=== PATIENT | male | born 1970 | race American Indian/Alaskan Native ===

== ENCOUNTER 2021-08-07 11:00 | Emergency (ER) | payer OTHER, SELFPAY ==
[2021-08-07 11:08] VITALS: BP 118/87
[2021-08-07] MEDS ORDERED: KETOROLAC 60 MG/2 ML INJ IM ONE (11:16)
--- NOTE | 2021-08-07 12:37 | XRay Report ---
Left hip, 2 views HISTORY: Pain COMPARISON: None FINDINGS: Curvilinear ossific density is present along the lateral aspect of the anterior inferior il iac spine. This could reflect avulsion fracture of the rectus femoris. Recommend correlation with foc al point tenderness. Otherwise, no evidence of fracture. No joint malalignment. Mild hip osteoporosis . SI joints and pubic symphysis are intact. No focal soft tissue abnormality. Signer Name: Flex Martinez MD Signed: 08/07/2021 12:33 PM Workstation Name: [id number]
--- NOTE | 2021-08-07 12:44 | Vascular Lab Report ---
DUPLEX DOPPLER LOWER EXTREMITY VEINS, LEFT INDICATION / CLINICAL INFORMATION: hip and thigh pain. TECHNIQUE: Duplex doppler imaging was performed through the veins of the left lower extremity using venous compr ession and other maneuvers. COMPARISON: None available. FINDINGS: LEFT COMMON FEMORAL VEIN: Negative. LEFT FEMORAL VEIN: Negative. LEFT POPLITEAL VEIN: Negative. LEFT CALF VEINS: Negative. ADDITIONAL FINDINGS: None. IMPRESSION: 1. No sonographic evidence for DVT in the left lower extremity. Signer Name: Flex Martinez MD Signed: 08/07/2021 12:39 PM Workstation Name: [id number]
--- NOTE | 2021-08-07 13:06 | Emergency Department Report ---
ED Extremity Problem HPI - General Chief complaint: Extremity Injury, Lower Stated complaint: LEFT HIP PAIN Time Seen by Provider: 08/07/21 11:16 Source: patient Mode of arrival: Wheelchair Limitations: No Limitations - History of Present Illness Initial comments: Patient is a 51-year-old [place] male who is complaining left hip pain for the last 2 days. Patient states he works at [employer] and is on his feet throughout the day. States he cannot remember any direct trauma but is having a great deal of pain at the left hip with some radiating pain into the left lower extremity. States he has increased pain with trying to walk and stand. Pain estimated 8 out of 10 in severity. Denies any back pain bowel or bladder dysfunction. States no fevers chills. Severity scale (0 -10): 8 - Related Data Previous Rx's Medication Instructions Recorded Last Taken Type Amoxicillin/K Clav Tab [Augmentin 1 tab PO BID #52 tablet 03/19/14 Unknown Rx 875MG] guaiFENesin/CODEINE [Robitussin AC] 10 ml PO Q4H PRN #30 oral.liqd 03/19/14 Unknown Rx oxyCODONE /ACETAMINOPHEN [Percocet 1 tab PO Q4H PRN #20 tablet 03/19/14 Unknown Rx 5/325 mg] predniSONE [Deltasone] 20 mg PO QDAY #7 tab 03/19/14 Unknown Rx HYDROcodone/APAP 5-325 [[place] 1 each PO Q6HR PRN #20 tablet 08/07/21 Unknown Rx 5/325] Ketorolac [Toradol] 10 mg PO Q6H PRN #30 tablet 08/07/21 Unknown Rx Allergies Allergy/AdvReac Type Severity Reaction Status Date / Time No Known Allergies Allergy Verified 08/07/21 11:04 ED Review of Systems ROS: Stated complaint: LEFT HIP PAIN Other details as noted in HPI Comment: All other systems reviewed and negative ED Past Medical Hx - Past Medical History Hx Hypertension: Yes Additional medical history: pneumonia - Surgical History Additional Surgical History: ELBOW - Social History Smoking Status: Current Every Day Smoker - Medications Home Medications: Home Medications Medication Instructions Recorded Confirmed Last Taken Type Amoxicillin/K Clav Tab [Augmentin 1 tab PO BID #52 tablet 03/19/14 Unknown Rx 875MG] guaiFENesin/CODEINE [Robitussin AC] 10 ml PO Q4H PRN #30 oral.liqd 03/19/14 Unknown Rx oxyCODONE /ACETAMINOPHEN [Percocet 1 tab PO Q4H PRN #20 tablet 03/19/14 Unknown Rx 5/325 mg] predniSONE [Deltasone] 20 mg PO QDAY #7 tab 03/19/14 Unknown Rx HYDROcodone/APAP 5-325 [[place] 1 each PO Q6HR PRN #20 tablet 08/07/21 Unknown Rx 5/325] Ketorolac [Toradol] 10 mg PO Q6H PRN #30 tablet 08/07/21 Unknown Rx ED Physical Exam - General Limitations: No Limitations General appearance: alert, in no apparent distress - Head Head exam: Present: atraumatic, normocephalic - Eye Eye exam: Present: normal appearance - ENT ENT exam: Present: mucous membranes moist - Neck Neck exam: Present: normal inspection - Respiratory Respiratory exam: Present: normal lung sounds bilaterally. Absent: respiratory distress, wheezes, rales, rhonchi - Cardiovascular Cardiovascular Exam: Present: normal rhythm, tachycardia. Absent: systolic murmur, diastolic murmur, rubs, gallop - GI/Abdominal GI/Abdominal exam: Present: soft, normal bowel sounds. Absent: tenderness, guarding, rebound - Rectal Rectal exam: Present: deferred - Extremities Exam Extremities exam: Present: normal inspection, tenderness (Over the left iliac crest.), other (Patient does have full range of motion to the hip however he is in a great deal of pain. Patient with some medial thigh pain as well.) - Back Exam Back exam: Present: normal inspection - Neurological Exam Neurological exam: Present: alert, oriented X3 - Psychiatric Psychiatric exam: Present: normal affect, normal mood - Skin Skin exam: Present: warm, dry, intact, normal color. Absent: rash ED Course Vital Signs 08/07/21 08/07/21 11:07 11:28 Temperature 98.1 F Pulse Rate 127 H Respiratory 20 17 Rate Blood Pressure 118/87 O2 Sat by Pulse 100 Oximetry ED Medical Decision Making - Radiology Data Left hip, 2 views HISTORY: Pain COMPARISON: None FINDINGS: Curvilinear ossific density is present along the lateral aspect of the anterior inferior iliac spine. This could reflect avulsion fracture of the rectus femoris. Recommend correlation with focal point tenderness. Otherwise, no evidence of fracture. No joint malalignment. Mild hip osteoporosis. SI joints and pubic symphysis are intact. No focal soft tissue abnormality. Signer Name: Olinda Landers MD Signed: 08/07/2021 12:33 PM Workstation Name: [id number] Transcribed By: IVANA Dictated By: OLINDA LANDERS MD Electronically Authenticated By: OLINDA LANDERS MD Signed Date/Time: 08/07/21 1233 Ultrasound Doppler of the left lower extremity shows no acute DVT - Medical Decision Making Patient does have point tenderness over the left iliac crest. This is where the curvilinear irregularity is present. Patient may have had some type of ligament muscle movement which pulled off a piece of bone. The x-ray findings are consistent with the patient's pain. Patient referred to orthopedics and given medication for symptomatic relief. Patient stable for discharge. Critical care attestation.: If time is entered above; I have spent that time in minutes in the direct care of this critically ill patient, excluding procedure time. ED Disposition Clinical Impression: Closed avulsion fracture of anterior superior iliac spine of pelvis Disposition: 01 HOME / SELF CARE / HOMELESS Is pt being admited?: No Does the pt Need Aspirin: No Condition: Stable Instructions: Avulsion Fracture of the Anterior Superior Iliac Spine Referrals: CHARLEY SWENSON MD [Staff Physician] - 3-5 Days Forms: Work/School Release Form(ED) Time of Disposition: 13:08
== END 2021-08-07 13:20 | disposition home or self-care (01) ==
LOC: ED 11:00
DX: S32.312A Displaced avulsion fracture of left ilium, initial encounter for closed fracture (principal); I10 Essential (primary) hypertension; F17.200 Nicotine dependence, unspecified, uncomplicated; X58.XXXA Exposure to other specified factors, initial encounter; Y93.89 Activity, other specified; Y92.89 Other specified places as the place of occurrence of the external cause; Y99.8 Other external cause status
CPT/HCPCS: 73502; 93971; 96372; 99284; J1885

== ENCOUNTER 2022-02-11 07:22 | Emergency (ER) | payer OTHER ==
[2022-02-11 09:00] LABS: Basophils % (Auto) 0.8 % (0.0-1.8); Eosinophils # (Auto) 0.1 K/mm3 (0.0-0.4); Eosinophils % (Auto) 2.7 % (0.0-4.3); Hematocrit 39.1 % (35.5-45.6); Hemoglobin 13.2 gm/dl (11.8-15.2); Lymphocytes # (Auto) 1.5 K/mm3 (1.2-5.4); Mean Corpuscular HGB Conc 34 % (32-34); Mean Corpuscular Volume 99 fl (84-94); Monocytes # (Auto) 0.5 K/mm3 (0.0-0.8); Monocytes % (Auto) 12.8 % (0.0-7.3); Platelet Count 234 K/mm3 (140-440); Red Blood Count 3.97 M/mm3 (3.65-5.03); Red Cell Distribution Width 14.2 % (13.2-15.2)
--- NOTE | 2022-02-11 09:09 | XRay Report ---
CHEST 2 VIEWS INDICATION: sob,cough and rales. COMPARISON: 03/20/2014 FINDINGS: Support devices: None. Heart: Within normal limits. Lungs/pleura: No acute air space or interstitial disease. Trace left pleural effusion versus chronic left pleural thickening is present. I favor chronic pleural thickening. No pneumothorax. Additional findings: None. IMPRESSION: Trace left pleural effusion versus chronic left pleural thickening. Otherwise unremarkable chest exam . Signer Name: Jacoby Kat Jr, MD Signed: 02/11/2022 9:05 AM Workstation Name: [id number]
[2022-02-11 09:31] LABS: Alanine Aminotransferase 53 units/L (7-56); Albumin 4.2 g/dL (3.9-5); BUN/Creatinine Ratio 6; Blood Urea Nitrogen 5 mg/dL (9-20); Calcium 9.2 mg/dL (8.4-10.2); Hemolysis Index 4
--- NOTE | 2022-02-11 10:50 | Emergency Department Report ---
ED Chest Pain HPI - General Chief Complaint: Chest Pain Stated Complaint: CP/SEIZURE Time Seen by Provider: 02/11/22 09:16 Source: patient Mode of arrival: Ambulatory Limitations: No Limitations - History of Present Illness Initial Comments: 51-year-old male who came in with likely syncope episode/seizure that happened this morning. According to patient he got up this morning got in his car around 5 AM to go to work only to noticed that he close neighbor knocking on his car window to get his attention. Patient was told that he was shaking with his head on the steering wheel. Patient did not remember this event. Patient denies any chest pain, shortness of breath, or palpitation at this point. No fever or chills reported. Patient however states he works 2 jobs and is being working really had in the last few weeks. He got home around 11 PM last night and went to bed around 12 midnight. Patient denies any history of seizure, CAD, or lungs disease. No other modifying or positive factors reported. Severity scale (0 -10): 7 - Related Data Home Medications Medication Instructions Recorded Confirmed Last Taken No Known Home Medications [No 02/11/22 02/11/22 Unknown Reported Home Medications] Allergies Allergy/AdvReac Type Severity Reaction Status Date / Time No Known Allergies Allergy Verified 02/11/22 10:01 Heart Score - HEART Score History: Slightly suspicious EKG: Normal Age: 45-65 Risk factors: No known risk factors Troponin: < normal limit HEART Score: 1 - EKG Read Time Time EKG Completed: 07:44 EKG Read Time: 07:45 - Critical Actions Critical Actions: 0-3 pts:0.9-1.7%risk of adverse cardiac event.Candidate for discharge ED Review of Systems ROS: Stated complaint: CP/SEIZURE Other details as noted in HPI Comment: All other systems reviewed and negative Cardiovascular: denies: chest pain Neurological: weakness (Generalized muscle weakness). denies: headache, numbness ED Past Medical Hx - Past Medical History Hx Hypertension: Yes Additional medical history: pneumonia - Surgical History Additional Surgical History: ELBOW - Social History Smoking Status: Current Every Day Smoker - Medications Home Medications: Home Medications Medication Instructions Recorded Confirmed Last Taken Type No Known Home Medications [No 02/11/22 02/11/22 Unknown History Reported Home Medications] ED Physical Exam - General Limitations: No Limitations General appearance: alert, in no apparent distress - Head Head exam: Present: atraumatic, normal inspection - Eye Eye exam: Present: normal appearance, PERRL, EOMI Pupils: Present: normal accommodation - ENT ENT exam: Present: normal exam, normal orophraynx, mucous membranes moist - Neck Neck exam: Present: normal inspection, full ROM. Absent: tenderness, menin gismus - Respiratory Respiratory exam: Present: normal lung sounds bilaterally. Absent: respiratory distress, accessory muscle use - Cardiovascular Cardiovascular Exam: Present: regular rate, normal rhythm, normal heart sounds - GI/Abdominal GI/Abdominal exam: Present: soft, normal bowel sounds. Absent: distended, tenderness - Extremities Exam Extremities exam: Present: normal inspection, full ROM, normal capillary refill. Absent: tenderness, pedal edema - Back Exam Back exam: Absent: tenderness - Neurological Exam Neurological exam: Present: alert, oriented X3, CN II-XII intact - Psychiatric Psychiatric exam: Present: normal affect, normal mood - Skin Skin exam: Present: warm, normal color ED Course Vital Signs 02/11/22 02/11/22 02/11/22 07:43 09:08 09:16 Temperature 97.8 F Pulse Rate 84 81 Respiratory 18 13 Rate Blood Pressure 162/114 Blood Pressure 152/102 [Right] O2 Sat by Pulse 98 99 99 Oximetry 02/11/22 02/11/22 02/11/22 09:30 10:00 10:16 Temperature Pulse Rate 81 82 Respiratory 13 11 L Rate Blood Pressure 156/111 156/111 147/106 Blood Pressure [Right] O2 Sat by Pulse 100 99 99 Oximetry 02/11/22 02/11/22 02/11/22 10:30 10:46 11:00 Temperature Pulse Rate 82 73 74 Respiratory 13 14 14 Rate Blood Pressure 150/108 150/108 137/91 Blood Pressure [Right] O2 Sat by Pulse 99 99 98 Oximetry 02/11/22 02/11/22 02/11/22 11:16 11:30 11:46 Temperature Pulse Rate 95 H 85 Respiratory 19 12 Rate Blood Pressure 140/85 154/105 154/105 Blood Pressure [Right] O2 Sat by Pulse 99 98 99 Oximetry 02/11/22 02/11/22 02/11/22 12:00 12:16 12:30 Temperature Pulse Rate Respiratory Rate Blood Pressure 154/105 155/99 135/88 Blood Pressure [Right] O2 Sat by Pulse 98 100 99 Oximetry - Reevaluation(s) Reevaluation #1: 02/11/22 10:51 here with likely syncope, seizure or even CVA will go ahead and check routine labs to rule out any correctable or infectious process or electrolyte abnormality. We will also rule out cardiac event as a cause with EKG and troponin--initial EKG noted to be unremarkable without any ST elevation, with normal initial troponin. With reported generalized shakiness by this patient this could be a new seizure event, will continue to monitor. Reevaluation #2: 02/11/22 12:03 Labs reviewed and noted slightly elevated total creatinine kinase likely as a result of sitting for too long in the car or could also be as a result of postictal--we will continue to hydrate this patient with normal saline. 02/11/22 13:56 CT scan of the head did not show any acute findings and chest x-ray only shows trace of likely chronic pleural effusion with pleural thickening. Reevaluation #3: 02/11/22 13:54 Patient has 2 negative cardiac enzyme with unremarkable EKG this is likely noncardiac--we will continue to explore the possibility that this is seizure by having patient follow-up with his primary doctor in the next 3 to 5 days and wanted to return to emergency room if this happens again. ISAÍAS score - Isaías Score Age > 65: (0) No Aspirin use within the Past 7 Days: (0) No 3 or more CAD Risk Factors: (0) No 2 or more Angina events in past 24 hrs: (0) No Known CAD with more than 50% Stenosis: (0) No Elevated Cardiac Markers: (0) No ST Deviation Greater than 0.5mm: (0) No ISAÍAS Score: 0 ED Medical Decision Making - Lab Data Result diagrams: 02/11/22 08:20 02/11/22 08:20 - EKG Data -: EKG Interpreted by Me EKG shows normal: sinus rhythm Rate: normal - EKG Data Interpretation: LVH 02/11/22 10:55 Noted with normal sinus rhythm at a rate of 85 bpm with no STEMI noted and this abnormal ECG. - Radiology Data Radiology results: pending Critical care attestation.: If time is entered above; I have spent that time in minutes in the direct care of this critically ill patient, excluding procedure time. ED Disposition Clinical Impression: Seizure Syncope Qualifiers: Syncope type: unspecified Qualified Code(s): R55 - Syncope and collapse Disposition: 01 HOME / SELF CARE / HOMELESS Is pt being admited?: No Does the pt Need Aspirin: No Condition: Stable Instructions: Syncope (ED), Seizure, Adult, [id number], Syncope, [id number] Additional Instructions: Increase your daily fluid to help your hydration Please call and follow-up with your primary doctor in the next 3 to 5 days for progress Please do not hesitate to call or return to emergency room if your symptoms worsen Referrals: PRIMARY CARE, [Primary Care Provider] - 3-5 Days Time of Disposition: 13:57
[2022-02-11 11:44] LABS: INR 0.82 (0.87-1.13)
--- NOTE | 2022-02-11 11:48 | Electrocardiograph Report ---
[facility] Test Date: 2022-02-11 Test Time: 07:44:46 Pat Name: PATRICK FRITZ Department: Room: Gender: M Pediatric Intensive Physician: AF : 1970 Requested By: BECKY BLOOM Order Number: [id number] Reading MD: Boston Ferrer Measurements Intervals [place] Rate: 85 P: 94 MN: 154 QRS: 62 QRSD: 92 T: 51 QT: 384 QTc: 456 Interpretive Statements Sinus rhythm Consider left ventricular hypertrophy No previous ECG available for comparison Electronically Signed On 02-11-2022 11:47:53 EDT by Boston Ferrer
[2022-02-11 11:52] LABS: Amphetamine Screen,Urine Negative; Benzodiazepines Screen,Urine Negative; Cannabinoid Screen,Urine Negative; Cocaine Screen,Urine Negative; Methadone Screen,Urine Negative; Opiate Screen,Urine Negative
[2022-02-11 11:58] LABS: Bilirubin,Urine NEG (Negative); Blood,Urine NEG (Negative); Color,Urine Yellow (Yellow); Protein,Urine <15 mg/dL mg/dL (Negative); Urobilinogen,Urine < 2.0 mg/dL (<2.0)
[2022-02-11] MEDS ORDERED: SODIUM CHLORIDE 0.9% 1000 ML 1,000 ML IV ONE (12:03)
--- NOTE | 2022-02-11 12:17 | Cat Scan Report ---
CT BRAIN: 02/11/2022 INDICATION / CLINICAL INFORMATION: syncope. COMPARISON: None available. FINDINGS: BRAIN/INTRACRANIAL STRUCTURES: Unenhanced CT images of the brain demonstrate no evidence of acute int racranial abnormality. Ventricles and sulci are normal in size and shape for a patient of this age. There is no evidence of ischemic injury, hemorrhage, or mass. There are no abnormal extra-axial fluid collections. EXTRACRANIAL STRUCTURES: Unremarkable. IMPRESSION: No acute abnormality. All CT scans at this location are performed using dose reduction to ALARA by means of automated expos ure control. Signer Name: Ronak Braxton MD Signed: 02/11/2022 12:12 PM Workstation Name: [id number]
[2022-02-11 14:27] VITALS: BP 153/97
== END 2022-02-11 14:26 | disposition home or self-care (01) ==
LOC: ED 07:22
DX: R56.9 Unspecified convulsions (principal); R55 Syncope and collapse; F17.200 Nicotine dependence, unspecified, uncomplicated; I10 Essential (primary) hypertension
CPT/HCPCS: 36415; 70450; 71046; 80053; 80307; 81001; 82140; 82550; 83690; 83880; 84443; 84484; 85025; 85610; 85730; 93005; 96360; 99284; J7030; 80320; G0480